=== PATIENT | female | born 1955 ===

== ENCOUNTER 2019-04-01 07:35 | Outpatient (CLI) | payer OTHER ==
[~2019-04-01] VITALS: Ht 152.4 cm; Wt 43.1 kg
== END 2019-04-01 07:50 | disposition home or self-care (01) ==
LOC: OFIC 805 07:35
DX: H93.11 Tinnitus, right ear (principal); R42 Dizziness and giddiness; I49.8 Other specified cardiac arrhythmias

== ENCOUNTER 2019-04-22 07:52 | Outpatient (CLI) | payer OTHER ==
[~2019-04-22] VITALS: Ht 152.4 cm; Wt 43.1 kg
== END 2019-04-22 08:15 | disposition home or self-care (01) ==
LOC: OFIC 805 07:52
DX: H93.11 Tinnitus, right ear (principal); R42 Dizziness and giddiness; K21.9 Gastro-esophageal reflux disease without esophagitis; I49.8 Other specified cardiac arrhythmias